=== PATIENT | female | born 1990 | race Caucasian/White ===

== ENCOUNTER → 2016-12-26 | Outpatient (CLI) | payer OTHER ==
[2014-12-07 03:27] VITALS: BP 152/84
[2016-12-26 11:43] LABS: BASO # 0.1 x10^3/uL (0.0-0.2); BASO % 1 % (0-3); EOS % 2 % (0-3); HEMATOCRIT 43.7 % (36.0-47.0); HEMOGLOBIN 14.8 g/dL (12.0-15.5); LYMPH # 1.7 x10^3/uL (1.0-4.8); LYMPH % 16 % (24-48); MEAN CORPUSCULAR HEMOGLOBIN 32 pg (25-35); MEAN CORPUSCULAR HGB CONC 34 g/dL (31-37); MEAN CORPUSCULAR VOLUME 94 fL (79-100); MONO % 6 % (0-9); NEUT % 75 % (31-73); PLATELET COUNT 326 x10^3/uL (140-400); RED BLOOD COUNT 4.67 x10^6/uL (3.50-5.40); RED CELL DISTRIBUTION WIDTH 12.4 % (11.5-14.5); WHITE BLOOD COUNT 10.2 x10^3/uL (4.0-11.0)
[2016-12-26 11:58] LABS: ALBUMIN 4.3 g/dL (3.4-5.0); ALBUMIN/GLOBULIN RATIO 1.1 (1.0-1.7); CHOLESTEROL/HDL RATIO 5.3; CREATININE 0.7 mg/dL (0.6-1.0); GFR 100.4; POTASSIUM 4.1 mmol/L (3.5-5.1); TOTAL BILIRUBIN 0.3 mg/dL (0.2-1.0); TOTAL PROTEIN 8.2 g/dL (6.4-8.2)
[2016-12-26 12:08] LABS: FREE T4 1.1 ng/dL (0.76-1.46)
== END | disposition home or self-care (01) ==
LOC: LAB 11:11
PROVIDERS: ATTEND Family Medicine
DX: Z13.220 Encounter for screening for lipoid disorders (principal); R53.83 Other fatigue
CPT/HCPCS: 36415; 80053; 80061; 84439; 84443; 85025

== ENCOUNTER 2017-02-12 05:53 | Day surgery (SDC) | payer OTHER ==
[~2017-02-12 05:53] MED LIST: IBUP-1027 PO; LEVO1TAB PO; ZOLP10TA PO
[2017-02-12] MEDS ORDERED: BUPIVACAINE-EPI 0.5%-1:200000 50 ML VIAL. ONE (06:12)
[2017-02-12 06:46] LABS: NEG OBC UR NEG; POS OBC UR POS
[2017-02-12] MEDS ORDERED: MORPHINE SULFATE 2 MG/ML DISP.SYRIN. IV PRN (07:00)
[2017-02-12] MEDS ORDERED: PROCHLORPERAZINE 10 MG/2 ML VIAL. IV PRN (07:00)
[2017-02-12] MEDS ORDERED: HYDROmorphone 2 MG/ML VIAL IV PRN (07:00)
[2017-02-12] MEDS ORDERED: IV RINGERS,LACTATED 1000ML 1,000 ML IV SCH (07:00)
[2017-02-12] MEDS ORDERED: ONDANSETRON PF 4 MG/2 ML VIAL. IV PRN (07:00)
[2017-02-12] MEDS ORDERED: LIDOCAINE 1% PF 2 ML VIAL. ID PRN (07:00)
[2017-02-12] MEDS ORDERED: fentaNYL PF VIAL 100 MCG/2 ML VIAL IV PRN ×2 (07:00)
[2017-02-12] MEDS ORDERED: PROPOFOL 20 ML IV ONE (07:22)
[2017-02-12] MEDS ORDERED: LIDOCAINE 2% PF Vial for OR 5 ML VIAL. ONE (07:23)
[2017-02-12] MEDS ORDERED: ONDANSETRON PF 4 MG/2 ML VIAL. ONE (07:24)
[2017-02-12] MEDS ORDERED: DEXAMETHASONE SOD PHOS 20 MG/5 ML VIAL. ONE (07:24)
[2017-02-12] MEDS ORDERED: MIDAZOLAM HCL/PF 2 MG/2 ML VIAL. ONE (07:25)
[2017-02-12] MEDS ORDERED: fentaNYL PF VIAL 100 MCG/2 ML VIAL ONE (07:25)
[2017-02-12] MEDS ORDERED: KETOROLAC 30 MG/ML INJ FOR OR. INJ ONE (07:57)
[2017-02-12] MEDS ORDERED: OXYC-323 PO (08:47)
--- NOTE | 2017-02-12 08:54 | PDOC ---
BRIEF OPERATIVE NOTE Date: Feb 12, 2017 Pre-Op Diagnosis Cervical dysplasia Post-Op Diagnosis Same Procedure Performed LEEP CONE and ECC Surgeon IRMA Anesthesia Type: General Blood Loss 10cc Specimens Obtained ECC and LEEP cone Complications None MAYRA SOLIS MD Feb 12, 2017 08:54
[2017-02-12] MEDS ORDERED: oxyCODONE/APAP 5/325 1 TAB TABLET PO ONE ×2 (09:00)
[2017-02-12 09:09] VITALS: BP 137/79
--- NOTE | 2017-02-12 18:25 | OP ---
DATE OF SURGERY: 02/12/2017 PREOPERATIVE DIAGNOSIS: Cervical dysplasia. POSTOPERATIVE DIAGNOSIS: Cervical dysplasia. PROCEDURE: LEEP/cone biopsy with ECC. SURGEON: Jose Del Cid MD AUDIOLOGY ASSISTANT: None. ANESTHESIA: General. ESTIMATED BLOOD LOSS: 10 mL FLUIDS: Crystalloid. SPECIMENS: Endocervical curettings and LEEP/cone biopsy. COMPLICATIONS: None. CONDITION: Stable. DESCRIPTION OF PROCEDURE: Risks, benefits, indications and alternatives discussed in detail with patient. The patient was brought to the OR theater, placed in dorsal lithotomy position in Raymundo stirrups. After adequate general anesthesia, patient prepped and draped in usual sterile manner. Needham speculum was placed in the vaginal vault. Cervix was identified. LEEP/cone specimen was taken in usual manner. ECC was done with Kevorkian curette and placed on Telfa sponge and handed off the operative field. LEEP/cone biopsy also handed off the operative field. The base of the LEEP/cone was cauterized with Bovie cautery. Good hemostasis was assured. Procedure was terminated. Any blood or debris was wiped from the vaginal vault. Procedure was terminated. The patient went to postop anesthesia recovery in stable condition. Sponge, needle and instrument counts were correct x 2 per nursing staff. The patient tolerated the procedure well. JOSE DEL CID MD DR: TUSHAR/dane JOB#: [id number] / [id number]
--- NOTE | 2017-02-13 15:13 | PATHOLOGY ---
PATHOLOGY REPORT * * * * * * * * FINAL DIAGNOSIS: A. Uterine cervix, LEEP cone: - Severe dysplasia (MICHELLE-III), focal. - Endocervical, ectocervical, and deep margins negative for MICHELLE-III. - Chronic cervicitis with focal squamous metaplasia. - Vascular ectasia and congestion. B. Endocervical curettings: - Several minute strips of benign endocervical epithelium and few minute segments of benign squamous epithelium identified negative for dysplasia. (JPM:whit; 02/13/2017) REPORT ELECTRONICALLY SIGNED BY: Raj Santiago M.D. DATE/TIME: 02/13/2017 15:13 * * * * * * * * GROSS PATHOLOGY: A. The specimen is received in formalin, labeled "Johnny Zarate, LEEP cone," and consists of a LEEP cone segment measuring 1.7 x 1.5 x 0.6 cm. The ectocervix is purple-sanz and glistening. The identifiable surgical margins are inked black. It is serially sectioned and entirely submitted in cassettes A1-A2. B. Received in formalin labeled "Johnny Zarate, endocervical curettings," is blood-tinged mucoid material containing small fragments of sanz membranous tissue, measuring 0.6 x 0.3 x 0.1 cm in aggregate dimensions. The specimen is submitted entirely in cassette B1. Due to the nature the specimen it may not survive processing. (SDY; 02/12/2017) INITIAL CPT CODE(S): A; 29610 B; 47003 Professional services performed by [facility] [place] [address] Technical services performed by [facility] at [address] [place] [address], [facility] [address] [address]. SPECIMEN(S) RECEIVED: A.LEEP cone B.Endocervical curettings CLINICAL HISTORY: Abnormal pap, cervical dysplasia PATIENT: JOHNNY ZARATE /AGE: 1104/01/1990 (Age: 26) PATIENT #: [id number] ALT CASE #: SPECIMEN COLLECTION DATE: 02/12/2017 SPECIMEN RECEIVED DATE: 02/12/2017 [facility] - [address] [place] [address] - PHONE: [phone] * * * END OF REPORT * * *
== END 2017-02-12 09:45 | disposition home or self-care (01) ==
LOC: SURG 05:53
PROVIDERS: ATTEND Specialist
DX: N87.9 Dysplasia of cervix uteri, unspecified (principal); K21.9 Gastro-esophageal reflux disease without esophagitis; F41.9 Anxiety disorder, unspecified; Z72.89 Other problems related to lifestyle; Z98.890 Other specified postprocedural states; Z87.440 Personal history of urinary (tract) infections; Z88.1 Allergy status to other antibiotic agents
CPT/HCPCS: 57522; 81025; J1100; J1885; J2250; J2405; J2704; J3010; 88305; 88307; J2001